=== PATIENT | female | born 1940 | race Caucasian/White ===

== ENCOUNTER → 2016-12-01 | Outpatient (REF) | payer MEDICARE, OTHER ==
[~2016-12-01] MED LIST: /PANT40TA; ALEN10TA2 OR; ALTA5CAP; ASPI325T; BABY81CH; FERR325T; FLON0.05; HYDR25TA6; IMDU60TA; IMDU60TA OR; KLOR10TA OR; LOPR100T; PLAV75TA2; PLAV75TA2 OR; PRED10TA2 OR; SIMV10TA2; SIMV40TA2 OR; VITA100T; ZOLO50TA
[2016-12-01 17:49] LABS: AMYLASE 50 U/L (25-115)
[2016-12-02 07:57] LABS: CONTROL LINE HPYORI INT CTR LINE PRESENT
== END ==
LOC: M LAB REF 16:35
PROVIDERS: ATTEND Nurse Practitioner Adult Health
DX: R10.84 Generalized abdominal pain (principal)

== ENCOUNTER → 2017-02-02 | Outpatient (REF) | payer MEDICARE, OTHER | LOC: M LAB REF 16:53 | PROVIDERS: ATTEND Surgery | DX: L57.0 Actinic keratosis (principal) ==

== ENCOUNTER → 2019-04-26 | Outpatient (CLI) | payer MEDICARE, OTHER ==
[~2019-04-26] MED LIST changes: -/PANT40TA; +PROT1TAB2
--- NOTE | 2019-04-26 15:50 | REP ---
Four views left foot: 04/26/2019. Indication: Left foot pain. Comparison: None. Findings: There is no acute fracture, subluxation or dislocation. No erosive lesions of the visualized bones are present. No significant soft tissue abnormalities are detected. Impression: No fracture or additional acute osseous injuries of the left foot. Electronically Signed by Merritt Young DO 04/26/2019 03:41 P
== END ==
LOC: M RAD 15:08
PROVIDERS: ATTEND Physician Assistant Medical
DX: M79.672 Pain in left foot (principal)

== ENCOUNTER 2020-11-19 18:42 | Emergency (ER) | payer MEDICARE, OTHER ==
[~2020-11-19] VITALS: Ht 160 cm; Wt 57.0 kg
[2020-11-19 20:23] LABS: BASO # 0.1 10^3/uL (0.0-0.2); BASO % 1.3 % (0.0-1.0); EOS # 1.1 10^3/uL (0.0-0.5); EOS % 13.8 % (0.0-3.0); HEMATOCRIT 40.7 % (36.0-47.0); HEMOGLOBIN 13.4 g/dl (12.0-15.5); LYMPH # 2.2 10^3/uL (1.5-5.0); LYMPH % 28.5 % (24.0-44.0); MEAN CORPUSCULAR HEMOGLOBIN 30.8 pg (27.0-33.0); MEAN CORPUSCULAR HGB CONC 32.9 g/dl (32.0-36.5); MEAN CORPUSCULAR VOLUME 93.6 fl (80.0-96.0); MONO # 0.8 10^3/uL (0.0-0.8); MONO % 10.6 % (2.0-8.0); NEUTROPHILS # 3.5 10^3/uL (1.5-8.5); NEUTROPHILS % 45.5 % (36.0-66.0); PLATELET COUNT, AUTOMATED 216 10^3/uL (150-450); RED BLOOD COUNT 4.35 10^6/uL (4.00-5.40); WHITE BLOOD COUNT 7.8 10^3/uL (4.0-10.0)
--- NOTE | 2020-11-19 21:23 | REPVR ---
PROCEDURE INFORMATION: Exam: XR Chest Exam date and time: 11/19/2020 8:25 PM Age: 80 years old Clinical indication: Cough and dyspnea; Additional info: Dyspnea/cough TECHNIQUE: Imaging protocol: XR of the chest. Views: 1 view. COMPARISON: MRI CHEST W/O FOLL WITH 04/23/2014 10:48 AM FINDINGS: Lungs: Pulmonary hyperinflation. No focal infiltrates. Increased lucency of lung. Pleural spaces: Unremarkable. No pleural effusion. No pneumothorax. Heart/Mediastinum: The heart is within normal limits considering lordotic projection. Bones/joints: Unremarkable. IMPRESSION: 1. Suggestion of some degree of COPD. 2. Otherwise negative chest. No acute process is identified. Electronically signed by: Romero Pinon On 11/19/2020 21:23:40 PM
[2020-11-19 21:33] LABS: ALBUMIN 3.3 GM/DL (3.2-5.2); ALT/SGPT 17 U/L (12-78); BILIRUBIN,DIRECT 0.1 MG/DL (0.0-0.2); BILIRUBIN,TOTAL 0.3 MG/DL (0.2-1.0); BLOOD UREA NITROGEN 23 MG/DL (7-18); CALCIUM LEVEL 9.3 MG/DL (8.8-10.2); CARBON DIOXIDE LEVEL 24 MEQ/L (21-32); CHLORIDE LEVEL 110 MEQ/L (98-107); CK-MB VALUE MASS 2.2 NG/ML (<3.6); CPK CREATINE PHOSPHOKINASE 48 U/L (26-192); CREATININE FOR GFR 0.54 MG/DL (0.55-1.30); GLOMERULAR FILTRATION RATE > 60.0 (>39); GLUCOSE, FASTING 92 MG/DL (70-100); MAGNESIUM LEVEL 2.2 MG/DL (1.8-2.4); MB/CK RELATIVE INDEX 4.58 (< OR =4); NT-PRO BNP 93 PG/ML (<450); POTASSIUM SERUM 4.3 MEQ/L (3.5-5.1); SODIUM LEVEL 142 MEQ/L (136-145); THYROXINE (T4) 6.7 UG/DL (4.5-12.0); TOTAL PROTEIN 6.2 GM/DL (6.4-8.2); TROPONIN I < 0.02 NG/ML (< 0.10)
[2020-11-19 23:15] VITALS: BP 136/76
--- NOTE | 2020-11-20 19:40 | ECGEPIP ---
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
== END 2020-11-20 00:05 | disposition home or self-care (01) ==
LOC: M ED 18:42
DX: R53.81 Other malaise (principal); R63.4 Abnormal weight loss; R06.02 Shortness of breath; I25.10 Atherosclerotic heart disease of native coronary artery without angina pectoris; I10 Essential (primary) hypertension; E03.9 Hypothyroidism, unspecified; F17.200 Nicotine dependence, unspecified, uncomplicated; Z88.0 Allergy status to penicillin; Z79.899 Other long term (current) drug therapy; Z79.82 Long term (current) use of aspirin

== ENCOUNTER → 2020-12-09 | Outpatient (CLI) | payer MEDICARE, OTHER ==
[~2020-12-09] MED LIST changes: +GASTROGRAFIN SOLUTION 30ML (Q9963) As Ordered ONE; +ISOVUE-370 76% 100ML VIAL As Ordered ONE
--- NOTE | 2020-12-10 08:07 | REP ---
INDICATION: WEIGHT LOSS AND EPIGASTRIC PAIN. COMPARISON: None TECHNIQUE: Axial contrast-enhanced images from the lung bases to the pubic symphysis using oral and 100 cc Isovue 370 intravenous contrast material. . This CT examination was performed using the following dose reduction techniques: Automated exposure control, adjustment of mA and/or kv according to the patient's size, and the use of iterative reconstruction technique. FINDINGS: Lung bases are clear. Visualized heart and pericardium normal. Liver, spleen, pancreas, bilateral adrenal glands and left kidney are normal. Incidental 2 mm nonobstructing right renal calculus noted. The enteric system including stomach, small, and large bowel appears essentially normal. No evidence for obstruction or acute inflammatory process. Normal terminal ileum and cecum are identified in the right lower quadrant. Few scattered sigmoid diverticula noted without acute diverticulitis. Pelvis demonstrates normal bladder and prior hysterectomy. No ascites. No free air. No intraperitoneal or retroperitoneal adenopathy. Atherosclerotic changes to the aorta and branch vessels noted without aneurysm or dissection. Musculoskeletal structures demonstrate age-related degenerative changes without acute osseous abnormality. IMPRESSION: No acute abdominopelvic pathology appreciated. As above. <Electronically signed by Pranay Proctor > 12/10/20 1229
== END ==
LOC: M RAD 16:15
PROVIDERS: ATTEND Physician Assistant Medical
DX: R63.4 Abnormal weight loss (principal); R10.13 Epigastric pain
CPT/HCPCS: 74178; Q9963; Q9967

== ENCOUNTER → 2020-12-25 | Outpatient (CLI) | payer MEDICARE, OTHER ==
[~2020-12-25] MED LIST changes: -GASTROGRAFIN SOLUTION 30ML (Q9963) As Ordered ONE; -ISOVUE-370 76% 100ML VIAL As Ordered ONE
--- NOTE | 2020-12-25 08:32 | REP ---
INDICATION: NICOTINE DEPENDENCE. COMPARISON: None. TECHNIQUE: Axial noncontrast images from the thoracic inlet to the upper abdomen using low-dose lung screening technique (LDCT). As per the protocol only lung window images were sent to the read station for interpretation. FINDINGS: There is mild biapical pleuroparenchymal scarring. There is a thick wall cystic airspace in the anterior segment of the left upper lobe. This measures 1 cm. Along its inferior margin there is a 5 mm sized nodule. In the apicoposterior segment of the left upper lobe there is 4 mm size nodule. In the superior segment of the left lower lobe there is a 3 mm size nodule. In the lateral basal segment of the right lower lobe there is a 4 mm size nodule. There are numerous scattered 2 and 3 mm sized nodules bilaterally. There is cylindrical bronchiectasis. In some of the dilatated bronchi there is obstructing or near obstructing debris in the right lower lobe. In the left mainstem bronchus there is a small amount of soft tissue density along the anterior wall. There is cylindrical bronchiectasis throughout. There is an incidental calcified granuloma in the right lower lobe. Grossly the mediastinum and pulmonary murray are within normal limits. Grossly the imaged upper abdomen and imaged osseous structures are within normal limits. IMPRESSION: There are multiple lung field abnormalities as described above. According to the revised Fleischner society criteria the largest nodule which is seen in the left upper lobe represents a category 4 lesion and for which a 3 month follow-up is recommended, however, due to the multiple lung field abnormalities I will categorize the examination as a 4 S and recommend pulmonary consultation for further evaluation if clinically relevant. <Electronically signed by Cruzito Gonzalez > 12/25/20 7623
== END ==
LOC: M RAD 07:59
PROVIDERS: ATTEND Physician Assistant Medical
DX: F17.210 Nicotine dependence, cigarettes, uncomplicated (principal)

== ENCOUNTER → 2021-01-06 | Outpatient (CLI) | payer MEDICARE, OTHER | LOC: M WHC 07:52 | PROVIDERS: ATTEND Physician Assistant Medical | DX: Z12.31 Encounter for screening mammogram for malignant neoplasm of breast (principal) ==

== ENCOUNTER → 2021-01-28 | Outpatient (CLI) | payer MEDICARE, OTHER ==
--- NOTE | 2021-01-28 14:46 | PFTRPT ---
Site: [facility], [address] [place] [address], [id number] ID: [id number] Name: PARISA KEYS Visit Date: 01/28/2021 Second ID: [id number] Referring Doctor: Magen Estevez MD Reviewing Doctor: Magen Estevez MD On Call: Alpesh WALTER, CHUCKIE Age: 80 : 1940 Sex: Female Race: Height: 63.00 Inches Weight: 124.00 Lbs BSA: 1.58 Order IDs: [id number] Requested Test(s): <RESP-PFT.PFT B/A> Diagnosis: R91.8 test appear to be valid, although the ATS standard for "end of test" was not met. Pt was given four puffs of albuterol for post bronchodilator. Review Status: Not Reviewed Pre-Bronch Post-Bronch Pred Actual %Pred Actual %Chng SPIROMETRY FVC (L) 2.50 2.91 116 2.95 1 FEV1 (L) 1.86 1.77 95 2.03 14 FEV1/FVC (%) 74 61 82 69 13 FEF 25% (L/sec) 4.40 2.75 62 4.10 49 FEF 50% (L/sec) 3.06 0.99 32 1.88 90 FEF 75% (L/sec) 0.76 0.32 41 0.29 -9 FEF 25-75% (L/sec) 1.37 0.79 57 1.20 51 FEF Max (L/sec) 4.67 4.62 98 5.02 8 FIVC (L) 2.62 2.75 4 FIF 50% (L/sec) 2.88 3.10 107 3.43 10 FIF Max (L/sec) 3.11 3.43 10 MVV (L/min) 78 70 89 Expiratory Time (sec) 7.73 8.85 14 Back Extrap Vol (L) 0.06 0.08 31 Time To FEFmax (sec) 0.078 0.081 3 LUNG VOLUMES SVC (L) 2.57 2.88 112 IC (L) 2.07 1.74 83 ERV (L) 0.50 1.14 228 TGV (L) 2.83 4.12 145 RV (Pleth) (L) 2.33 2.98 127 TLC (Pleth) (L) 4.90 5.86 119 RV/TLC (Pleth) (%) 47 51 108 DIFFUSION DLCOunc (ml/min/mmHg) 19.03 15.53 81 DLCOcor (ml/min/mmHg) 19.03 15.99 84 DL/VA (ml/min/mmHg/L) 3.88 3.60 92 VA (L) 4.90 4.44 90 BHT (sec) 9.98 IVC (L) 2.51 TLC (SB) (L) 4.59 AIRWAYS RESISTANCE Raw (cmH2O/L/s) 1.86 1.02 54 Gaw (L/s/cmH2O) 1.03 0.99 96 sRaw (cmH2O*s) 4.76 4.29 90 sGaw (1/cmH2O*s) 0.20 0.23 117 BLOOD GASES Hgb (gm/dL) 12.5
== END ==
LOC: M CARPUL 13:35
PROVIDERS: ATTEND Internal Medicine Pulmonary Disease
DX: R91.8 Other nonspecific abnormal finding of lung field (principal)

== ENCOUNTER → 2022-03-17 | Outpatient (REF) | payer MEDICARE, OTHER | LOC: M LAB REF 12:02 | PROVIDERS: ATTEND Physician Assistant Medical | DX: E03.9 Hypothyroidism, unspecified (principal) ==

== ENCOUNTER → 2022-10-21 | Outpatient (REF) | payer MEDICARE, OTHER | LOC: M LAB REF 12:19 | PROVIDERS: ATTEND Physician Assistant Medical | DX: E03.9 Hypothyroidism, unspecified (principal) ==

== ENCOUNTER → 2022-12-11 | Outpatient (CLI) | payer MEDICARE, OTHER | LOC: M RAD 06:58 | PROVIDERS: ATTEND Internal Medicine Pulmonary Disease | DX: R91.8 Other nonspecific abnormal finding of lung field (principal) ==

== ENCOUNTER → 2023-03-08 | Outpatient (CLI) | payer MEDICARE, OTHER | LOC: M WUC 11:01 | PROVIDERS: ATTEND Physician Assistant Medical | DX: M25.552 Pain in left hip (principal) ==

== ENCOUNTER → 2023-11-18 | Outpatient (CLI) | payer MEDICARE, OTHER ==
[2023-11-18 12:58] LABS: BLOOD UREA NITROGEN 23 MG/DL (9-23); CREATININE FOR GFR 0.73 MG/DL (0.55-1.30); GLOMERULAR FILTRATION RATE > 60.0 (>32)
== END ==
LOC: M LAB 11:32
PROVIDERS: ATTEND Psychiatry & Neurology Neurology
DX: I10 Essential (primary) hypertension (principal)

== ENCOUNTER → 2023-12-23 | Outpatient (CLI) | payer MEDICARE, OTHER ==
[~2023-12-23] MED LIST changes: +BUDE3CAP; +CLON-412; +CLOP75TA2; +ISOS20TA4; +LEVO88CA; +METO1TAB33; +RAMI10CA64; +SIMVPOW2; +ZOLO100T
== END ==
LOC: M EKG 07:56
PROVIDERS: ATTEND Internal Medicine Cardiovascular Disease
DX: I63.81 Other cerebral infarction due to occlusion or stenosis of small artery (principal); R94.31 Abnormal electrocardiogram [ECG] [EKG]; R00.1 Bradycardia, unspecified

== ENCOUNTER 2023-12-30 13:51 | Emergency (ER) | payer MEDICARE, OTHER ==
[~2023-12-30] VITALS: Ht 157.5 cm; Wt 48.6 kg
[~2023-12-30 13:51] MED LIST changes: -BUDE3CAP; -CLON-412; -CLOP75TA2; -ISOS20TA4; -LEVO88CA; -METO1TAB33; -RAMI10CA64; -SIMVPOW2; -ZOLO100T
[2023-12-30] MEDS ORDERED: BUDE3CAP (14:06)
[2023-12-30] MEDS ORDERED: SIMVPOW2 (14:06)
[2023-12-30 14:46] LABS: BASO # 0.1 10^3/uL (0.0-0.2); BASO % 0.8 % (0.0-1.0); EOS # 0.6 10^3/uL (0.0-0.5); EOS % 8.9 % (0.0-3.0); HEMATOCRIT 31.8 % (36.0-47.0); HEMOGLOBIN 9.7 g/dl (12.0-15.5); LYMPH # 2.1 10^3/uL (1.5-5.0); LYMPH % 29.6 % (24.0-44.0); MEAN CORPUSCULAR HEMOGLOBIN 24.3 pg (27.0-33.0); MEAN CORPUSCULAR HGB CONC 30.5 g/dl (32.0-36.5); MEAN CORPUSCULAR VOLUME 79.7 fl (80.0-96.0); MONO # 0.6 10^3/uL (0.0-0.8); MONO % 8.9 % (2.0-8.0); NEUTROPHILS # 3.6 10^3/uL (1.5-8.5); NEUTROPHILS % 51.4 % (36.0-66.0); PLATELET COUNT, AUTOMATED 299 10^3/uL (150-450); RED BLOOD COUNT 3.99 10^6/uL (4.00-5.40); WHITE BLOOD COUNT 7.1 10^3/uL (4.0-10.0)
[2023-12-30 15:12] LABS: BLOOD UREA NITROGEN 20 MG/DL (9-23); CALCIUM LEVEL 9.3 MG/DL (8.3-10.6); CARBON DIOXIDE LEVEL 25 MMOL/L (20-31); CHLORIDE LEVEL 112 MMOL/L (98-107); CPK CREATINE PHOSPHOKINASE 40 U/L (34-145); CREATININE FOR GFR 0.59 MG/DL (0.55-1.30); GLOMERULAR FILTRATION RATE > 60.0 (>32); GLUCOSE, FASTING 80 MG/DL (74-106); POTASSIUM SERUM 4.2 MMOL/L (3.5-5.1); SODIUM LEVEL 142 MMOL/L (136-145)
[2023-12-30] MEDS ORDERED: ONDANSETRON 4MG 2ML VIAL IV ONE (15:30)
[2023-12-30] MEDS ORDERED: ISOVUE-370 76% 100ML VIAL As Ordered ONE (15:42)
[2023-12-30 16:04] LABS: CK-MB VALUE MASS 1.8 NG/ML (<3.6)
[2023-12-30 16:08] LABS: MB/CK RELATIVE INDEX 4.86 (< OR =4)
[2023-12-30] MEDS ORDERED: LEVO88CA (18:09)
[2023-12-30] MEDS ORDERED: CLON-412 (18:09)
[2023-12-30] MEDS ORDERED: ISOS20TA4 (18:09)
[2023-12-30] MEDS ORDERED: METO1TAB33 (18:09)
[2023-12-30] MEDS ORDERED: RAMI10CA64 (18:09)
[2023-12-30] MEDS ORDERED: ZOLO100T (18:09)
[2023-12-30] MEDS ORDERED: CLOP75TA2 (18:09)
[2023-12-30 19:01] VITALS: BP 184/85; TEMP 98.8; O2SAT 95
== END 2023-12-30 19:03 | disposition home or self-care (01) ==
LOC: M ED 13:51
DX: R07.9 Chest pain, unspecified (principal); J44.1 Chronic obstructive pulmonary disease with (acute) exacerbation; J43.9 Emphysema, unspecified; R00.1 Bradycardia, unspecified; I10 Essential (primary) hypertension; E78.5 Hyperlipidemia, unspecified; Z86.79 Personal history of other diseases of the circulatory system; F17.200 Nicotine dependence, unspecified, uncomplicated; Z90.49 Acquired absence of other specified parts of digestive tract; Z88.0 Allergy status to penicillin; Z79.82 Long term (current) use of aspirin; Z79.899 Other long term (current) drug therapy
CPT/HCPCS: 71045; 71275; 80047; 80048; 82550; 82553; 84484; 85025; 85730; 93005; 93041; 94760; 96374; 99285; Q9967

== ENCOUNTER 2024-02-22 11:32 | Day surgery (SDC) | payer MEDICARE, OTHER ==
[~2024-02-22] VITALS: Ht 157.5 cm; Wt 50.2 kg
[~2024-02-22 11:32] MED LIST changes: +ASPI-163 PO; +BUDE3CAP PO; +CLON-412 PO; +CLOP75TA2 PO; +ISOS20TA4 PO; +LEVO88CA PO; +METO1TAB33 PO; +RAMI10CA64 PO; +SIMV80TA13 PO; +SIMVPOW2; +ZOLO100T PO
[2024-02-22] MEDS ORDERED: LR 1,000 ML IV SCH (12:00)
[2024-02-22] MEDS ORDERED: LIDOCAINE 2% 100MG/5ML SDV (FOR ANES.) As Ordered ONE (12:40)
[2024-02-22] MEDS ORDERED: propofoL 200 MG/20 ML VIAL As Ordered ONE (12:40)
[2024-02-22] MEDS: ceFAZolin SOD 2 GM in IV 1 EA IV ONE (13:23)
[2024-02-22] MEDS: LIDOCAINE 1% SDV 30ML VIAL As Ordered ONE (13:44)
[2024-02-22 14:17] VITALS: BP 171/77; TEMP 97.8; O2SAT 100
== END 2024-02-22 14:40 | disposition home or self-care (01) ==
LOC: M SDC 11:32
PROVIDERS: ATTEND Internal Medicine Cardiovascular Disease
DX: I63.9 Cerebral infarction, unspecified (principal); I48.91 Unspecified atrial fibrillation; Z79.02 Long term (current) use of antithrombotics/antiplatelets; I10 Essential (primary) hypertension; J44.9 Chronic obstructive pulmonary disease, unspecified; I25.10 Atherosclerotic heart disease of native coronary artery without angina pectoris; E03.9 Hypothyroidism, unspecified; F32.A Depression, unspecified; Z88.0 Allergy status to penicillin; Z79.899 Other long term (current) drug therapy
CPT/HCPCS: 33285; C1764; J0690

== ENCOUNTER 2024-03-05 12:25 | Emergency (ER) | payer MEDICARE, OTHER ==
[~2024-03-05] VITALS: Ht 157.5 cm; Wt 48.4 kg
[2024-03-05 19:02] VITALS: BP 178/82; TEMP 97.1; O2SAT 95
== END 2024-03-05 19:22 | disposition home or self-care (01) ==
LOC: M ED 12:25
DX: F43.0 Acute stress reaction (principal); K08.89 Other specified disorders of teeth and supporting structures; I25.2 Old myocardial infarction; I10 Essential (primary) hypertension; E78.5 Hyperlipidemia, unspecified; J45.909 Unspecified asthma, uncomplicated; J44.9 Chronic obstructive pulmonary disease, unspecified; E03.9 Hypothyroidism, unspecified; Z87.891 Personal history of nicotine dependence; Z88.0 Allergy status to penicillin; Z79.82 Long term (current) use of aspirin; Z79.899 Other long term (current) drug therapy

== ENCOUNTER 2024-03-13 11:58 | Inpatient (IN) | payer MEDICARE, OTHER ==
[2024-03-13] VITALS (8 sets, daily range): BP systolic 149–201; BP diastolic 64–83; TEMP 97.3–99; O2SAT 95–99
[~2024-03-13] VITALS: Ht 157.5 cm; Wt 49.2 kg
[2024-03-13] MEDS ORDERED: ISOVUE-370 76% 100ML VIAL As Ordered ONE (12:51)
[2024-03-13 13:06] LABS: BASO % 0.6 % (0.0-1.0); EOS # 0.5 10^3/uL (0.0-0.5); EOS % 7.7 % (0.0-3.0); LYMPH # 1.5 10^3/uL (1.5-5.0); LYMPH % 22.9 % (24.0-44.0); MEAN CORPUSCULAR HEMOGLOBIN 21.2 pg (27.0-33.0); MEAN CORPUSCULAR HGB CONC 28.5 g/dl (32.0-36.5); MEAN CORPUSCULAR VOLUME 74.2 fl (80.0-96.0); MONO # 0.5 10^3/uL (0.0-0.8); MONO % 7.9 % (2.0-8.0); NEUTROPHILS # 3.9 10^3/uL (1.5-8.5); NEUTROPHILS % 60.3 % (36.0-66.0); PLATELET COUNT, AUTOMATED 340 10^3/uL (150-450); WHITE BLOOD COUNT 6.5 10^3/uL (4.0-10.0)
[2024-03-13 13:17] LABS: INR 1.08; PARTIAL THROMBOPLASTIN TIME 30.1 SECONDS (24.8-34.2); PROTHROMBIN TIME 13.7 SECONDS (12.5-14.5)
[2024-03-13 13:19] LABS: HEMATOCRIT 19.3 % (36.0-47.0)
[2024-03-13 13:20] LABS: CK-MB VALUE MASS 1.1 NG/ML (<3.6)
[2024-03-13 13:22] LABS: BLOOD UREA NITROGEN 22 MG/DL (9-23); CARBON DIOXIDE LEVEL 28 MMOL/L (20-31); CHLORIDE LEVEL 111 MMOL/L (98-107); CREATININE FOR GFR 0.63 MG/DL (0.55-1.30); GLOMERULAR FILTRATION RATE > 60.0 (>32); GLUCOSE, FASTING 75 MG/DL (74-106); HEMOGLOBIN 5.5 g/dl (12.0-15.5); POTASSIUM SERUM 4.3 MMOL/L (3.5-5.1); SODIUM LEVEL 143 MMOL/L (136-145)
[2024-03-13 13:27] LABS: CPK CREATINE PHOSPHOKINASE 41 U/L (34-145); MB/CK RELATIVE INDEX 2.68 (< OR =4)
[2024-03-13] MEDS ORDERED: BUSP5TA PO (13:38)
[2024-03-13] MEDS ORDERED: SIMV-254 PO (13:38)
[2024-03-13] MEDS ORDERED: HOME MED LIST COMPLETE! XX SCH (13:40)
[2024-03-13] MEDS: PANTOPRAZOLE 40MG VIAL IV ONE ×2 (14:02→21:08)
[2024-03-13] MEDS ORDERED: busPIRone 5 MG TAB PO PRN (15:10)
[2024-03-13] MEDS ORDERED: SERTRALINE 100 MG TAB PO ONE (15:25)
[2024-03-13] MEDS ORDERED: ramipriL 5 MG CAP PO ONE (15:25)
[2024-03-13] MEDS ORDERED: LEVOTHYROXINE 88MCG TABLET (0.088 MG) PO ONE (15:25)
[2024-03-13] MEDS ORDERED: PANTOPRAZOLE 40MG VIAL IV ONE (15:25)
[2024-03-13] MEDS: SERTRALINE 100 MG TAB PO SCH (15:45)
[2024-03-13] MEDS: METOPROLOL SUCC (TopROL XL) 100MG *XL* TAB PO SCH (15:45)
[2024-03-13 16:21] LABS: IRON (FE) 6 UG/DL (50-170)
[2024-03-13 16:22] LABS: FERRITIN 5.8 NG/ML (7.3-270.7); FOLATE 18.35 NG/ML (>5.4); PERCENT SATURATION 1.5 % (13.2-45.0); TOTAL IRON BINDING CAPACITY 413 UG/DL (250-425)
[2024-03-13 16:25] LABS: VITAMIN B12 LEVEL > 2000 PG/ML (211-911)
[2024-03-13] MEDS: METOPROLOL TART 25 MG TABLET PO ONE (17:31)
[2024-03-13] MEDS: BUDESONIDE EC 3MG CAP (ENTOCORT EC) PO SCH (21:08)
[2024-03-13] MEDS: ramipriL 5 MG CAP PO SCH (21:08)
[2024-03-13] MEDS: SIMVASTATIN 40 MG TAB PO SCH (21:08)
[2024-03-13] MEDS: ISOSORBIDE DIN. (ISORDIL) 20 MG TAB PO SCH (21:08)
[2024-03-13 21:40] LABS: ALBUMIN 3.2 G/DL (3.2-5.2); ALKALINE PHOSPHATASE 78 U/L (46-116); ALT/SGPT 10 U/L (7.0-40); AST/SGOT 18 U/L (<34); BILIRUBIN,TOTAL 0.8 MG/DL (0.3-1.2); BLOOD UREA NITROGEN 18 MG/DL (9-23); CALCIUM LEVEL 8.7 MG/DL (8.3-10.6); CARBON DIOXIDE LEVEL 26 MMOL/L (20-31); CHLORIDE LEVEL 111 MMOL/L (98-107); GLOMERULAR FILTRATION RATE > 60.0 (>32); GLUCOSE, FASTING 72 MG/DL (74-106); POTASSIUM SERUM 4.1 MMOL/L (3.5-5.1); SODIUM LEVEL 141 MMOL/L (136-145); TOTAL PROTEIN 5.8 G/DL (5.7-8.2)
[2024-03-14] VITALS (7 sets, daily range): BP systolic 140–178; BP diastolic 56–95; TEMP 97.2–98.3; O2SAT 94–96
[2024-03-14 02:25] LABS: BASO # 0.1 10^3/uL (0.0-0.2); EOS # 0.5 10^3/uL (0.0-0.5); EOS % 7.9 % (0.0-3.0); HEMATOCRIT 26.1 % (36.0-47.0); LYMPH # 1.3 10^3/uL (1.5-5.0); LYMPH % 18.2 % (24.0-44.0); MEAN CORPUSCULAR HGB CONC 30.7 g/dl (32.0-36.5); MEAN CORPUSCULAR VOLUME 78.4 fl (80.0-96.0); MONO # 0.5 10^3/uL (0.0-0.8); MONO % 7.7 % (2.0-8.0); NEUTROPHILS # 4.4 10^3/uL (1.5-8.5); NEUTROPHILS % 64.6 % (36.0-66.0); PLATELET COUNT, AUTOMATED 313 10^3/uL (150-450); RED BLOOD COUNT 3.33 10^6/uL (4.00-5.40); WHITE BLOOD COUNT 6.9 10^3/uL (4.0-10.0)
[2024-03-14] MEDS: SUCRALFATE SUSP 1GM/10ML UD PO SCH (06:00)
[2024-03-14] MEDS: LEVOTHYROXINE 88MCG TABLET (0.088 MG) PO SCH (06:26)
[2024-03-14] MEDS: ASPIRIN 81MG CHEW TABLET PEG SCH (08:51)
[2024-03-14] MEDS: PANTOPRAZOLE 40MG VIAL IV SCH (08:52)
[2024-03-14] MEDS ORDERED: SERTRALINE 100 MG TAB PO SCH (09:00)
[2024-03-14 11:28] LABS: HEMOGLOBIN A1c 5.4 % (4.0-6.0)
[2024-03-14 11:34] LABS: ALKALINE PHOSPHATASE 73 U/L (46-116); ALT/SGPT < 9 U/L (7.0-40); AST/SGOT 16 U/L (<34); BILIRUBIN,TOTAL 0.7 MG/DL (0.3-1.2); BLOOD UREA NITROGEN 14 MG/DL (9-23); CALCIUM LEVEL 8.3 MG/DL (8.3-10.6); CARBON DIOXIDE LEVEL 26 MMOL/L (20-31); CHLORIDE LEVEL 110 MMOL/L (98-107); CHOLESTEROL LEVEL 100 MG/DL (<200); CHOLESTEROL RISK RATIO 2.84 (<5); CREATININE FOR GFR 0.58 MG/DL (0.55-1.30); GLOMERULAR FILTRATION RATE > 60.0 (>32); GLUCOSE, FASTING 115 MG/DL (74-106); HDL CHOLESTEROL 35.1 MG/DL (>40); LDL CHOLESTEROL 45.9 MG/DL (<100); NON-HDL-C 64.9 MG/DL; POTASSIUM SERUM 4.2 MMOL/L (3.5-5.1); SODIUM LEVEL 139 MMOL/L (136-145); TOTAL PROTEIN 5.4 G/DL (5.7-8.2); TRIGLYCERIDES LEVEL 95 MG/DL (<150)
[2024-03-14] MEDS: PREVNAR-20 VACCINE 0.5ML SYRINGE IM.IMMUN ONE (12:10)
[2024-03-14] MEDS: FERRIC CARBOXYMALTOSE INJ 750 MG, VIAL MATE ADAPTER 1 EACH in NS 250 ML IV ONE (15:01)
[2024-03-15 00:35] VITALS: BP 160/58; TEMP 97.7; O2SAT 95
[2024-03-15 04:41] VITALS: BP 164/62; TEMP 98.5; O2SAT 95
[2024-03-15 07:20] VITALS: BP 152/86; TEMP 97.5; O2SAT 96
[2024-03-15 08:31] LABS: BASO % 0.7 % (0.0-1.0); EOS # 0.4 10^3/uL (0.0-0.5); EOS % 6.7 % (0.0-3.0); HEMATOCRIT 26.9 % (36.0-47.0); HEMOGLOBIN 8.1 g/dl (12.0-15.5); LYMPH # 0.9 10^3/uL (1.5-5.0); LYMPH % 16.3 % (24.0-44.0); MEAN CORPUSCULAR HEMOGLOBIN 23.6 pg (27.0-33.0); MEAN CORPUSCULAR HGB CONC 30.1 g/dl (32.0-36.5); MEAN CORPUSCULAR VOLUME 78.4 fl (80.0-96.0); MONO # 0.5 10^3/uL (0.0-0.8); MONO % 8.8 % (2.0-8.0); NEUTROPHILS # 3.9 10^3/uL (1.5-8.5); PLATELET COUNT, AUTOMATED 291 10^3/uL (150-450); RED BLOOD COUNT 3.43 10^6/uL (4.00-5.40); WHITE BLOOD COUNT 5.8 10^3/uL (4.0-10.0)
[2024-03-15 08:57] LABS: BLOOD UREA NITROGEN 11 MG/DL (9-23); CALCIUM LEVEL 8.9 MG/DL (8.3-10.6); CARBON DIOXIDE LEVEL 28 MMOL/L (20-31); CHLORIDE LEVEL 111 MMOL/L (98-107); GLOMERULAR FILTRATION RATE > 60.0 (>32); GLUCOSE, FASTING 87 MG/DL (74-106); SODIUM LEVEL 142 MMOL/L (136-145)
[2024-03-15 16:00] VITALS: BP 138/82; TEMP 97.5; O2SAT 97
[2024-03-15] MEDS: MOM 30ML SUSPENSION UDC PO ONE (18:26)
[2024-03-15 19:53] VITALS: BP 158/58; TEMP 97.7; O2SAT 97
[2024-03-15 21:00] VITALS: BP 137/58; TEMP 98.1; O2SAT 93
[2024-03-16] VITALS (12 sets, daily range): BP systolic 134–162; BP diastolic 54–71; TEMP 97–98.4; O2SAT 95–98
[2024-03-16 06:30] LABS: BASO # 0.1 10^3/uL (0.0-0.2); BASO % 0.9 % (0.0-1.0); EOS # 0.4 10^3/uL (0.0-0.5); EOS % 7.3 % (0.0-3.0); HEMOGLOBIN 7.5 g/dl (12.0-15.5); LYMPH # 1.4 10^3/uL (1.5-5.0); LYMPH % 23.2 % (24.0-44.0); MEAN CORPUSCULAR HEMOGLOBIN 23.7 pg (27.0-33.0); MEAN CORPUSCULAR VOLUME 79.1 fl (80.0-96.0); MONO # 0.6 10^3/uL (0.0-0.8); MONO % 10.6 % (2.0-8.0); NEUTROPHILS # 3.4 10^3/uL (1.5-8.5); NEUTROPHILS % 57.3 % (36.0-66.0); PLATELET COUNT, AUTOMATED 299 10^3/uL (150-450); RED BLOOD COUNT 3.16 10^6/uL (4.00-5.40); WHITE BLOOD COUNT 5.9 10^3/uL (4.0-10.0)
[2024-03-16] MEDS: MOM 30ML SUSPENSION UDC PO ONE (09:00)
[2024-03-16 16:12] LABS: HEMOGLOBIN 6.5 g/dl (12.0-15.5)
[2024-03-16] MEDS: POLYETHYLENE GLYCOL (MIRALAX) 238GM BOTTLE PO ONE (17:43)
[2024-03-17] VITALS (10 sets, daily range): BP systolic 118–174; BP diastolic 50–94; TEMP 97.2–98.8; O2SAT 93–98
[2024-03-17] MEDS: POLYETHYLENE GLYCOL (MIRALAX) 238GM BOTTLE PO ONE (06:26)
[2024-03-17 06:29] LABS: BASO # 0.1 10^3/uL (0.0-0.2); BASO % 0.9 % (0.0-1.0); EOS # 0.4 10^3/uL (0.0-0.5); EOS % 5.5 % (0.0-3.0); LYMPH # 1.3 10^3/uL (1.5-5.0); LYMPH % 16.2 % (24.0-44.0); MEAN CORPUSCULAR HGB CONC 31.5 g/dl (32.0-36.5); MEAN CORPUSCULAR VOLUME 82.6 fl (80.0-96.0); MONO # 0.8 10^3/uL (0.0-0.8); MONO % 9.8 % (2.0-8.0); NEUTROPHILS # 5.3 10^3/uL (1.5-8.5); NEUTROPHILS % 66.7 % (36.0-66.0); PLATELET COUNT, AUTOMATED 267 10^3/uL (150-450); RED BLOOD COUNT 3.84 10^6/uL (4.00-5.40); WHITE BLOOD COUNT 7.9 10^3/uL (4.0-10.0)
[2024-03-17 06:35] LABS: HEMATOCRIT 31.7 % (36.0-47.0)
[2024-03-17] MEDS: ACETAMINOPHEN *IV* 500 MG in IV 1 EA IV ONE (12:20)
[2024-03-17] MEDS ORDERED: propofoL 200 MG/20 ML VIAL As Ordered ONE (14:34)
[2024-03-17] MEDS ORDERED: LIDOCAINE 2% INJ 100 MG/5 ML SYRINGE As Ordered ONE (14:34)
[2024-03-17] MEDS ORDERED: LIDOCAINE 2% 100MG/5ML SDV (FOR ANES.) As Ordered ONE (14:40)
[2024-03-17] MEDS ORDERED: fentaNYL 100 MCG/2 ML INJECTION As Ordered ONE (16:32)
[2024-03-17] MEDS ORDERED: ONDANSETRON 4MG 2ML VIAL IV PRN (18:00)
[2024-03-17] MEDS ORDERED: fentaNYL 100 MCG/2 ML INJECTION IV PRN (18:00)
[2024-03-17] MEDS: NORCO, ANEXSIA 5/325MG TABLET (HYDROcodone/ACETAMINOPHEN) PO ONE (20:57)
[2024-03-18] VITALS: BP 110/50; TEMP 97.9; O2SAT 97
[2024-03-18 04:00] VITALS: BP 142/58; TEMP 97.9; O2SAT 96
[2024-03-18 07:02] LABS: BASO # 0.1 10^3/uL (0.0-0.2); BASO % 0.7 % (0.0-1.0); EOS # 0.4 10^3/uL (0.0-0.5); HEMATOCRIT 30.6 % (36.0-47.0); HEMOGLOBIN 9.5 g/dl (12.0-15.5); LYMPH # 1.4 10^3/uL (1.5-5.0); MEAN CORPUSCULAR HEMOGLOBIN 26.3 pg (27.0-33.0); MEAN CORPUSCULAR VOLUME 84.8 fl (80.0-96.0); MONO # 0.7 10^3/uL (0.0-0.8); MONO % 9.4 % (2.0-8.0); NEUTROPHILS # 4.6 10^3/uL (1.5-8.5); NEUTROPHILS % 63.9 % (36.0-66.0); PLATELET COUNT, AUTOMATED 240 10^3/uL (150-450); RED BLOOD COUNT 3.61 10^6/uL (4.00-5.40); WHITE BLOOD COUNT 7.2 10^3/uL (4.0-10.0)
[2024-03-18 09:39] VITALS: BP 119/52; TEMP 97.7; O2SAT 97
[2024-03-18 12:00] VITALS: BP 136/62; TEMP 97; O2SAT 96
[2024-03-18 16:00] VITALS: BP 135/60; TEMP 97.7; O2SAT 97
[2024-03-18 20:59] VITALS: BP 151/60; TEMP 98.1; O2SAT 96
[2024-03-19] VITALS (7 sets, daily range): BP systolic 136–167; BP diastolic 59–70; TEMP 97.7–98.1; O2SAT 95–100
[2024-03-19 06:56] LABS: HEMATOCRIT 30.3 % (36.0-47.0); HEMOGLOBIN 9.4 g/dl (12.0-15.5); MEAN CORPUSCULAR HEMOGLOBIN 26.6 pg (27.0-33.0); MEAN CORPUSCULAR VOLUME 85.6 fl (80.0-96.0); PLATELET COUNT, AUTOMATED 205 10^3/uL (150-450); RED BLOOD COUNT 3.54 10^6/uL (4.00-5.40); WHITE BLOOD COUNT 5.5 10^3/uL (4.0-10.0)
[2024-03-19 07:23] LABS: ALBUMIN 2.9 G/DL (3.2-5.2); ALKALINE PHOSPHATASE 84 U/L (46-116); ALT/SGPT < 9 U/L (7.0-40); AST/SGOT 17 U/L (<34); BILIRUBIN,TOTAL 0.6 MG/DL (0.3-1.2); BLOOD UREA NITROGEN 10 MG/DL (9-23); CALCIUM LEVEL 8.7 MG/DL (8.3-10.6); CARBON DIOXIDE LEVEL 26 MMOL/L (20-31); CHLORIDE LEVEL 112 MMOL/L (98-107); CREATININE FOR GFR 0.67 MG/DL (0.55-1.30); GLOMERULAR FILTRATION RATE > 60.0 (>32); GLUCOSE, FASTING 78 MG/DL (74-106); POTASSIUM SERUM 3.9 MMOL/L (3.5-5.1); SODIUM LEVEL 140 MMOL/L (136-145); TOTAL PROTEIN 5.3 G/DL (5.7-8.2)
[2024-03-20 04:48] VITALS: BP 166/71; TEMP 97.9; O2SAT 98
[2024-03-20 07:10] LABS: HEMATOCRIT 29.8 % (36.0-47.0); MEAN CORPUSCULAR HEMOGLOBIN 25.9 pg (27.0-33.0); MEAN CORPUSCULAR HGB CONC 30.2 g/dl (32.0-36.5); MEAN CORPUSCULAR VOLUME 85.6 fl (80.0-96.0); PLATELET COUNT, AUTOMATED 196 10^3/uL (150-450); RED BLOOD COUNT 3.48 10^6/uL (4.00-5.40)
[2024-03-20 07:57] LABS: ALBUMIN 2.9 G/DL (3.2-5.2); ALKALINE PHOSPHATASE 82 U/L (46-116); ALT/SGPT < 9 U/L (7.0-40); AST/SGOT 21 U/L (<34); BILIRUBIN,TOTAL 0.6 MG/DL (0.3-1.2); BLOOD UREA NITROGEN 7 MG/DL (9-23); CALCIUM LEVEL 8.5 MG/DL (8.3-10.6); CARBON DIOXIDE LEVEL 27 MMOL/L (20-31); CHLORIDE LEVEL 111 MMOL/L (98-107); CREATININE FOR GFR 0.57 MG/DL (0.55-1.30); GLOMERULAR FILTRATION RATE > 60.0 (>32); GLUCOSE, FASTING 83 MG/DL (74-106); POTASSIUM SERUM 3.9 MMOL/L (3.5-5.1); SODIUM LEVEL 144 MMOL/L (136-145); TOTAL PROTEIN 5.2 G/DL (5.7-8.2)
[2024-03-20 08:00] VITALS: BP 162/82; TEMP 98.1; O2SAT 97
[2024-03-20] MEDS: PANTOPRAZOLE 40MG TAB (PROTONIX) PO SCH (08:17)
[2024-03-20 12:00] VITALS: BP 152/96; TEMP 97.7; O2SAT 96
[2024-03-20 16:00] VITALS: BP 151/60; TEMP 98.4; O2SAT 97
[2024-03-20 20:01] VITALS: BP 155/57; TEMP 98.1; O2SAT 96
[2024-03-21] VITALS: BP 150/60; TEMP 97.7; O2SAT 95
[2024-03-21 04:01] VITALS: BP 156/67; TEMP 97.9; O2SAT 96
[2024-03-21 07:07] LABS: HEMATOCRIT 27.7 % (36.0-47.0); HEMOGLOBIN 8.6 g/dl (12.0-15.5); MEAN CORPUSCULAR HEMOGLOBIN 26.6 pg (27.0-33.0); MEAN CORPUSCULAR VOLUME 85.8 fl (80.0-96.0); PLATELET COUNT, AUTOMATED 180 10^3/uL (150-450); RED BLOOD COUNT 3.23 10^6/uL (4.00-5.40); WHITE BLOOD COUNT 4.5 10^3/uL (4.0-10.0)
[2024-03-21 07:54] LABS: ALBUMIN 2.7 G/DL (3.2-5.2); ALKALINE PHOSPHATASE 88 U/L (46-116); ALT/SGPT 9 U/L (7.0-40); AST/SGOT 18 U/L (<34); BILIRUBIN,TOTAL 0.4 MG/DL (0.3-1.2); BLOOD UREA NITROGEN 13 MG/DL (9-23); CALCIUM LEVEL 8.4 MG/DL (8.3-10.6); CARBON DIOXIDE LEVEL 26 MMOL/L (20-31); CHLORIDE LEVEL 111 MMOL/L (98-107); CREATININE FOR GFR 0.61 MG/DL (0.55-1.30); GLOMERULAR FILTRATION RATE > 60.0 (>32); GLUCOSE, FASTING 83 MG/DL (74-106); POTASSIUM SERUM 3.8 MMOL/L (3.5-5.1); SODIUM LEVEL 143 MMOL/L (136-145); TOTAL PROTEIN 5.1 G/DL (5.7-8.2)
[2024-03-21 09:54] LABS: HEMATOCRIT 28.3 % (36.0-47.0); HEMOGLOBIN 8.5 g/dl (12.0-15.5)
[2024-03-21 12:00] VITALS: BP 146/60; TEMP 98.2; O2SAT 97
[2024-03-21] MEDS: FERRIC CARBOXYMALTOSE INJ 750 MG, VIAL MATE ADAPTER 1 EACH in NS 100 ML IV ONE (12:51)
[2024-03-21 21:37] VITALS: BP 141/60; TEMP 98.1; O2SAT 98
[2024-03-21 23:52] VITALS: BP 147/48; TEMP 97.9; O2SAT 97
[2024-03-22 05:03] VITALS: BP 180/94; TEMP 98.8; O2SAT 98
[2024-03-22 05:06] VITALS: BP 172/78
[2024-03-22 08:00] VITALS: BP 165/69; TEMP 97.9; O2SAT 96
[2024-03-22 08:21] LABS: HEMATOCRIT 29.6 % (36.0-47.0); HEMOGLOBIN 8.9 g/dl (12.0-15.5)
[2024-03-22] MEDS ORDERED: SENOKOT S TAB PO SCH (09:00)
[2024-03-22] MEDS ORDERED: MAGNESIUM CITRATE 300ML BTL PO ONE (09:00)
[2024-03-22] MEDS ORDERED: SENOKOT S TAB PO PRN (09:00)
[2024-03-22 09:33] VITALS: BP 160/62
[2024-03-22] MEDS ORDERED: SENN-52 PO (11:08)
[2024-03-22] MEDS ORDERED: FERR5MLUD PO (11:08)
[2024-03-22] MEDS ORDERED: PANT40TA29 PO (11:08)
[2024-03-22] MEDS ORDERED: SUCR1ORA PO (11:08)
[2024-03-22] MEDS ORDERED: ASPI-163 PO (11:08)
[2024-03-22 12:00] VITALS: BP 159/63; TEMP 98.3; O2SAT 96
[2024-03-25] MEDS ORDERED: FERROUS SULFATE 300MG/5ML UDC LIQUID PO SCH (09:00)
== END 2024-03-22 14:20 | disposition home health service (06) | DRG 813 ==
LOC: M ED 11:58 → M ED INP 15:01 → M PCU 03-14 03:10 → M MS5PR 03-15 20:53
PROVIDERS: ADMIT Internal Medicine; ATTEND Student in an Organized Health Care Education/Training Program
PROC: 30233N1 Transfusion of Nonautologous Red Blood Cells into Peripheral Vein, Percutaneous Approach (ICD-10-PCS; 2024-03-13)
PROC: 0DBK8ZX Excision of Ascending Colon, Via Natural or Artificial Opening Endoscopic, Diagnostic (ICD-10-PCS; 2024-03-17)
PROC: 0DJ08ZZ Inspection of Upper Intestinal Tract, Via Natural or Artificial Opening Endoscopic (ICD-10-PCS; principal; 2024-03-17 09:00)
DX: D68.32 Hemorrhagic disorder due to extrinsic circulating anticoagulants (principal); K92.1 Melena; D62 Acute posthemorrhagic anemia; I10 Essential (primary) hypertension; F39 Unspecified mood [affective] disorder; I25.10 Atherosclerotic heart disease of native coronary artery without angina pectoris; E03.9 Hypothyroidism, unspecified; K52.831 Collagenous colitis; Z79.02 Long term (current) use of antithrombotics/antiplatelets; E61.1 Iron deficiency; D12.2 Benign neoplasm of ascending colon; K64.9 Unspecified hemorrhoids; G62.9 Polyneuropathy, unspecified; Z86.73 Personal history of transient ischemic attack (TIA), and cerebral infarction without residual deficits; Z88.0 Allergy status to penicillin; Z79.899 Other long term (current) drug therapy; Z79.82 Long term (current) use of aspirin; Z66 Do not resuscitate

== ENCOUNTER → 2024-03-24 | Outpatient (CLI) | payer MEDICARE, OTHER ==
[~2024-03-24] MED LIST changes: +BUSP5TA PO; +FERR5MLUD PO; +PANT40TA29 PO; +SENN-52 PO; +SIMV-254 PO; +SUCR1ORA PO
[2024-03-24 09:08] LABS: HEMOGLOBIN 9.4 g/dl (12.0-15.5)
== END ==
LOC: M LAB 08:32
PROVIDERS: ATTEND Student in an Organized Health Care Education/Training Program
DX: D64.9 Anemia, unspecified (principal)

== ENCOUNTER → 2024-04-05 | Outpatient (REF) | payer MEDICARE, OTHER | LOC: M LAB REF 13:11 | PROVIDERS: ATTEND Physician Assistant Medical | DX: N39.0 Urinary tract infection, site not specified (principal) ==

== ENCOUNTER 2024-04-17 11:13 | Observation (INO) | payer MEDICARE, OTHER ==
[~2024-04-17] VITALS: Ht 157.5 cm; Wt 44.6 kg
[~2024-04-17 11:13] MED LIST changes: +SUCR1TAB56 PO
[2024-04-17 12:29] LABS: HEMATOCRIT 43.2 % (36.0-47.0); HEMOGLOBIN 13.8 g/dl (12.0-15.5); LYMPH % 18.6 % (24.0-44.0); MEAN CORPUSCULAR HEMOGLOBIN 29.6 pg (27.0-33.0); MEAN CORPUSCULAR HGB CONC 31.9 g/dl (32.0-36.5); MEAN CORPUSCULAR VOLUME 92.5 fl (80.0-96.0); NEUTROPHILS % 69.2 % (36.0-66.0); PLATELET COUNT, AUTOMATED 186 10^3/uL (150-450); RED BLOOD COUNT 4.67 10^6/uL (4.00-5.40); WHITE BLOOD COUNT 7.4 10^3/uL (4.0-10.0)
[2024-04-17 12:30] LABS: BASO # 0.1 10^3/uL (0.0-0.2); BASO % 0.9 % (0.0-1.0); EOS # 0.2 10^3/uL (0.0-0.5); EOS % 3.2 % (0.0-3.0); LYMPH # 1.4 10^3/uL (1.5-5.0); MONO # 0.6 10^3/uL (0.0-0.8); MONO % 7.8 % (2.0-8.0); NEUTROPHILS # 5.1 10^3/uL (1.5-8.5)
[2024-04-17] MEDS: hydrALAZINE 20MG/ML 1ML VIAL IV STA ×2 (12:37→13:52)
[2024-04-17 13:00] LABS: CK-MB VALUE MASS 2.5 NG/ML (<3.6)
[2024-04-17 13:02] LABS: CPK CREATINE PHOSPHOKINASE 56 U/L (34-145); MB/CK RELATIVE INDEX 4.46 (< OR =4)
[2024-04-17 13:11] LABS: ALBUMIN 3.7 G/DL (3.2-5.2); ALKALINE PHOSPHATASE 119 U/L (35-104); ALT/SGPT 21 U/L (7.0-40); AST/SGOT 28 U/L (<34); BILIRUBIN,DIRECT 0.2 MG/DL (<0.4); BILIRUBIN,TOTAL 0.5 MG/DL (0.3-1.2); BLOOD UREA NITROGEN 15 MG/DL (9-23); CALCIUM LEVEL 9.6 MG/DL (8.3-10.6); CARBON DIOXIDE LEVEL 28 MMOL/L (20-31); CHLORIDE LEVEL 107 MMOL/L (98-107); GLOMERULAR FILTRATION RATE > 60.0 (>32); GLUCOSE, FASTING 77 MG/DL (74-106); POTASSIUM SERUM 4.3 MMOL/L (3.5-5.1); SODIUM LEVEL 143 MMOL/L (136-145); TOTAL PROTEIN 6.6 G/DL (5.7-8.2)
[2024-04-17] MEDS ORDERED: IRON65TA2 PO (13:21)
[2024-04-17] MEDS ORDERED: PANT40TA29 PO (13:23)
[2024-04-17] MEDS ORDERED: HOME MED LIST COMPLETE! XX SCH (13:25)
[2024-04-17] MEDS: METOPROLOL SUCC (TopROL XL) 100MG *XL* TAB PO STA (15:48)
[2024-04-17] MEDS: ramipriL 5 MG CAP PO SCH (15:49)
[2024-04-17] MEDS ORDERED: IPRATROPIUM 0.5MG/ALBUTEROL 2.5MG INH SOL UD 3ML (DUONEB) NEB PRN (16:15)
[2024-04-17] MEDS ORDERED: hydrALAZINE 20MG/ML 1ML VIAL IV PRN (17:05)
[2024-04-17] MEDS: **hydrALAZINE HCL** 25 MG TAB PO SCH (17:48)
[2024-04-17 18:36] VITALS: BP 152/66; TEMP 97.7; O2SAT 91
[2024-04-17 20:00] VITALS: BP 146/67; TEMP 97.1; O2SAT 90
[2024-04-17] MEDS: SIMVASTATIN 40 MG TAB PO SCH (20:21)
[2024-04-17] MEDS: ISOSORBIDE DIN. (ISORDIL) 20 MG TAB PO SCH (20:22)
[2024-04-17 21:01] VITALS: O2SAT 87
[2024-04-17 21:02] VITALS: O2SAT 92
[2024-04-17] MEDS: IPRATROPIUM 0.5MG/ALBUTEROL 2.5MG INH SOL UD 3ML (DUONEB) NEB SCH (21:06)
[2024-04-17] MEDS: ramipriL 5 MG CAP PO STA (22:12)
[2024-04-18] VITALS: BP 134/78; TEMP 98.2; O2SAT 91
[2024-04-18 04:00] VITALS: BP 166/70; TEMP 97.4; O2SAT 94
[2024-04-18 05:23] LABS: BASO # 0.1 10^3/uL (0.0-0.2); BASO % 1.2 % (0.0-1.0); EOS # 0.2 10^3/uL (0.0-0.5); EOS % 2.4 % (0.0-3.0); HEMOGLOBIN 13.9 g/dl (12.0-15.5); LYMPH # 1.8 10^3/uL (1.5-5.0); LYMPH % 25.4 % (24.0-44.0); MEAN CORPUSCULAR HEMOGLOBIN 28.8 pg (27.0-33.0); MEAN CORPUSCULAR HGB CONC 31.6 g/dl (32.0-36.5); MEAN CORPUSCULAR VOLUME 91.1 fl (80.0-96.0); MONO # 0.8 10^3/uL (0.0-0.8); MONO % 11.8 % (2.0-8.0); NEUTROPHILS # 4.1 10^3/uL (1.5-8.5); NEUTROPHILS % 58.9 % (36.0-66.0); PLATELET COUNT, AUTOMATED 202 10^3/uL (150-450); RED BLOOD COUNT 4.83 10^6/uL (4.00-5.40); WHITE BLOOD COUNT 6.9 10^3/uL (4.0-10.0)
[2024-04-18 05:51] LABS: CALCIUM LEVEL 9.8 MG/DL (8.3-10.6); CHOLESTEROL RISK RATIO 3.19 (<5); CREATININE FOR GFR 0.96 MG/DL (0.55-1.30); GLOMERULAR FILTRATION RATE 59.2 (>32); HDL CHOLESTEROL 44.1 MG/DL (>40); HEMOGLOBIN A1c 4.5 % (4.0-6.0); LDL CHOLESTEROL 78.3 MG/DL (<100); NON-HDL-C 96.9 MG/DL; POTASSIUM SERUM 4.2 MMOL/L (3.5-5.1)
[2024-04-18] MEDS: LEVOTHYROXINE 88MCG TABLET (0.088 MG) PO SCH (06:16)
[2024-04-18 07:56] VITALS: BP 132/69; TEMP 97.2; O2SAT 91
[2024-04-18] MEDS ORDERED: ROSU20TA86 PO (08:47)
[2024-04-18] MEDS ORDERED: ALTA1CAP4 PO ×2 (08:47→14:06)
[2024-04-18] MEDS ORDERED: AMLO1TAB24 PO (08:47)
[2024-04-18] MEDS: METOPROLOL SUCC (TopROL XL) 100MG *XL* TAB PO SCH (08:54)
[2024-04-18] MEDS: PANTOPRAZOLE 40MG TAB (PROTONIX) PO SCH (08:55)
[2024-04-18] MEDS: BUDESONIDE EC 3MG CAP (ENTOCORT EC) PO SCH (08:55)
[2024-04-18] MEDS: SERTRALINE 100 MG TAB PO SCH (08:55)
[2024-04-18] MEDS: ramipriL 5 MG CAP PO SCH (08:56)
[2024-04-18 12:02] VITALS: BP 116/56; O2SAT 92
[2024-04-18 12:51] VITALS: TEMP 96.9
[2024-04-18] MEDS ORDERED: HYDR50TA46 PO (13:45)
[2024-04-18] MEDS ORDERED: SIMV40TA20 PO (14:01)
[2024-04-18 15:15] VITALS: BP 149/69
[2024-04-19] MEDS ORDERED: FERROUS SULFATE 325MG TAB PO SCH (09:00)
== END 2024-04-18 15:37 | disposition home or self-care (01) ==
LOC: M ED 11:13 → EDBD 11:13 → M ED INP 14:25 → INTOOBSV 14:25 → M PCU 18:37
PROVIDERS: ADMIT Internal Medicine; ATTEND Internal Medicine
DX: I16.0 Hypertensive urgency (principal); Z86.73 Personal history of transient ischemic attack (TIA), and cerebral infarction without residual deficits; I25.10 Atherosclerotic heart disease of native coronary artery without angina pectoris; E78.5 Hyperlipidemia, unspecified; J44.9 Chronic obstructive pulmonary disease, unspecified; E03.9 Hypothyroidism, unspecified; D12.0 Benign neoplasm of cecum; K52.831 Collagenous colitis; F39 Unspecified mood [affective] disorder; D50.9 Iron deficiency anemia, unspecified; G62.9 Polyneuropathy, unspecified; Z85.43 Personal history of malignant neoplasm of ovary; G47.33 Obstructive sleep apnea (adult) (pediatric); Z88.0 Allergy status to penicillin; Z79.899 Other long term (current) drug therapy
CPT/HCPCS: 36415; 51701; 70450; 70551; 71045; 72125; 80048; 80061; 80076; 81001; 82550; 82553; 83036; 83735; 84484; 85025; 93005; 93041; 93306; 94640; 94760; 96374; 96376; 97116; 97161; 97165; 97535; 99285; G0378; J0360

== ENCOUNTER 2024-05-01 06:38 | Day surgery (SDC) | payer MEDICARE, OTHER ==
[~2024-05-01] VITALS: Ht 157.5 cm; Wt 45.4 kg
[~2024-05-01 06:38] MED LIST changes: +ALTA1CAP4 PO; +AMLO1TAB24 PO; +HYDR50TA46 PO; +IRON65TA2 PO; +NS 250 ML IV ONE; +ROSU20TA86 PO; +SIMV40TA20 PO
[2024-05-01] MEDS ORDERED: propofoL 200 MG/20 ML VIAL As Ordered ONE (07:08)
[2024-05-01] MEDS ORDERED: ePHEDrine SULFATE 25 MG/5 ML(5MG/ML) SYRINGE As Ordered ONE (07:47)
[2024-05-01] MEDS ORDERED: GLYCOPYRROLATE INJ 0.2 MG/ML 2 ML VIAL As Ordered ONE (07:47)
[2024-05-01] MEDS ORDERED: PHENYLephrine 500MCG 5ML (100MCG/ML) SYRINGE As Ordered ONE (07:51)
[2024-05-01 08:28] VITALS: TEMP 97.8
[2024-05-01 08:48] VITALS: BP 115/56; O2SAT 99
== END 2024-05-01 09:06 | disposition home or self-care (01) ==
LOC: M OPP 06:38
PROVIDERS: ATTEND Internal Medicine Gastroenterology
DX: D12.5 Benign neoplasm of sigmoid colon (principal); K57.30 Diverticulosis of large intestine without perforation or abscess without bleeding; K64.8 Other hemorrhoids; I25.10 Atherosclerotic heart disease of native coronary artery without angina pectoris; I25.2 Old myocardial infarction; I10 Essential (primary) hypertension; E03.9 Hypothyroidism, unspecified; E78.00 Pure hypercholesterolemia, unspecified; Z79.890 Hormone replacement therapy; Z79.899 Other long term (current) drug therapy; Z95.5 Presence of coronary angioplasty implant and graft; Z90.710 Acquired absence of both cervix and uterus; Z90.49 Acquired absence of other specified parts of digestive tract; G62.9 Polyneuropathy, unspecified; Z86.73 Personal history of transient ischemic attack (TIA), and cerebral infarction without residual deficits; G47.30 Sleep apnea, unspecified; Z92.21 Personal history of antineoplastic chemotherapy; Z85.43 Personal history of malignant neoplasm of ovary; Z88.1 Allergy status to other antibiotic agents
CPT/HCPCS: 45385; 88305; J1596

== ENCOUNTER → 2024-05-17 | Outpatient (REF) | payer MEDICARE, OTHER ==
[~2024-05-17] MED LIST changes: -NS 250 ML IV ONE
[2024-05-17 14:03] LABS: BASO # 0.1 10^3/uL (0.0-0.2); BASO % 0.8 % (0.0-1.0); EOS # 0.3 10^3/uL (0.0-0.5); EOS % 4.6 % (0.0-3.0); HEMATOCRIT 43.3 % (36.0-47.0); HEMOGLOBIN 13.9 g/dl (12.0-15.5); LYMPH # 1.3 10^3/uL (1.5-5.0); LYMPH % 17.4 % (24.0-44.0); MEAN CORPUSCULAR HEMOGLOBIN 30.2 pg (27.0-33.0); MEAN CORPUSCULAR HGB CONC 32.1 g/dl (32.0-36.5); MEAN CORPUSCULAR VOLUME 94.1 fl (80.0-96.0); MONO # 0.6 10^3/uL (0.0-0.8); MONO % 8.2 % (2.0-8.0); NEUTROPHILS # 4.9 10^3/uL (1.5-8.5); NEUTROPHILS % 68.9 % (36.0-66.0); PLATELET COUNT, AUTOMATED 191 10^3/uL (150-450); WHITE BLOOD COUNT 7.2 10^3/uL (4.0-10.0)
== END ==
LOC: M SFHCPLAZ 09:27
PROVIDERS: ATTEND Internal Medicine Hematology
DX: D50.9 Iron deficiency anemia, unspecified (principal)

== ENCOUNTER → 2024-06-23 | Outpatient (REF) | payer MEDICARE, OTHER ==
[2024-06-23 13:39] LABS: PERCENT SATURATION 14.4 % (13.2-45.0)
[2024-06-23 13:42] LABS: FERRITIN 84.8 NG/ML (7.3-270.7)
== END ==
LOC: M LAB REF 12:23
PROVIDERS: ATTEND Internal Medicine
DX: D50.9 Iron deficiency anemia, unspecified (principal)

== ENCOUNTER → 2025-02-28 | Outpatient (CLI) | payer MEDICARE, OTHER ==
[~2025-02-28] MED LIST changes: +AMLO1TAB25 PO; +ASPI81CH33 PO; +ASPI81TA26 PO; +CARV12.5 PO; +FERR300L12 PO; -FERR5MLUD PO; -LEVO88CA PO; +LEVO88CA2 PO; +NICO1DIS10 TD
[2025-02-28 10:20] LABS: BASO # 0.1 10^3/uL (0.0-0.2); BASO % 1.3 % (0.0-1.0); EOS # 0.4 10^3/uL (0.0-0.5); EOS % 7.5 % (0.0-3.0); LYMPH # 1.8 10^3/uL (1.5-5.0); LYMPH % 32.9 % (24.0-44.0); MONO # 0.6 10^3/uL (0.0-0.8); MONO % 10.2 % (2.0-8.0); NEUTROPHILS # 2.7 10^3/uL (1.5-8.5); NEUTROPHILS % 47.6 % (36.0-66.0); PLATELET COUNT, AUTOMATED 210 10^3/uL (150-450)
[2025-02-28 10:54] LABS: CALCIUM LEVEL 8.8 MG/DL (8.3-10.6); CARBON DIOXIDE LEVEL 30.0 MMOL/L (20-31); CHLORIDE LEVEL 107.0 MMOL/L (98-107); CHOLESTEROL LEVEL 135.0 MG/DL (<200); CHOLESTEROL RISK RATIO 2.45 (<5); CREATININE FOR GFR 0.9 MG/DL (0.55-1.30); DIGOXIN LEVEL 0.2 NG/ML (0.8-2.0); GLOMERULAR FILTRATION RATE 63.4 (>32); LDL CHOLESTEROL 63.5 MG/DL (<100); MAGNESIUM LEVEL 1.9 MG/DL (1.8-2.4); NON-HDL-C 79.9 MG/DL; POTASSIUM SERUM 4.3 MMOL/L (3.5-5.1); SODIUM LEVEL 143.0 MMOL/L (136-145); TRIGLYCERIDES LEVEL 82.0 MG/DL (<150)
== END ==
LOC: M LAB 08:50
PROVIDERS: ATTEND Nurse Practitioner Family
DX: I48.0 Paroxysmal atrial fibrillation (principal); R94.31 Abnormal electrocardiogram [ECG] [EKG]; Z79.899 Other long term (current) drug therapy

== ENCOUNTER 2025-03-03 11:44 | Emergency (ER) | payer MEDICARE, OTHER ==
[~2025-03-03] VITALS: Ht 157.5 cm; Wt 49.1 kg
[2025-03-03] MEDS ORDERED: ELIQ2.5T PO (12:04)
[2025-03-03] MEDS ORDERED: DIGO0.123 PO (12:04)
[2025-03-03 14:15] VITALS: BP 177/82; TEMP 98.1; O2SAT 98
[2025-03-03] MEDS: TETANUS/DIPHTH/ACEL. PERTUSSIS 0.5 ML SYR IM ONE (14:16)
== END 2025-03-03 14:34 | disposition home or self-care (01) ==
LOC: M ED 11:44
DX: S00.03XA Contusion of scalp, initial encounter (principal); S61.512A Laceration without foreign body of left wrist, initial encounter; W01.198A Fall on same level from slipping, tripping and stumbling with subsequent striking against other object, initial encounter; F32.A Depression, unspecified; I10 Essential (primary) hypertension; E03.9 Hypothyroidism, unspecified; J44.9 Chronic obstructive pulmonary disease, unspecified; I25.2 Old myocardial infarction; M51.34 Other intervertebral disc degeneration, thoracic region; M50.322 Other cervical disc degeneration at C5-C6 level; M25.78 Osteophyte, vertebrae; M48.02 Spinal stenosis, cervical region; Z79.01 Long term (current) use of anticoagulants; Z88.1 Allergy status to other antibiotic agents; Z86.79 Personal history of other diseases of the circulatory system; Y92.009 Unspecified place in unspecified non-institutional (private) residence as the place of occurrence of the external cause; Y93.89 Activity, other specified; Y99.9 Unspecified external cause status; Z79.899 Other long term (current) drug therapy; Z79.82 Long term (current) use of aspirin

== ENCOUNTER 2025-03-09 15:54 | Observation (INO) | payer MEDICARE, OTHER ==
[~2025-03-09] VITALS: Ht 157.5 cm; Wt 48.5 kg
[~2025-03-09 15:54] MED LIST changes: +DIGO0.123 PO; +ELIQ2.5T PO
[2025-03-09 16:54] LABS: BASO # 0.1 10^3/uL (0.0-0.2); BASO % 1.1 % (0.0-1.0); EOS # 0.4 10^3/uL (0.0-0.5); EOS % 4.9 % (0.0-3.0); LYMPH # 1.8 10^3/uL (1.5-5.0); LYMPH % 24.6 % (24.0-44.0); MONO # 0.6 10^3/uL (0.0-0.8); MONO % 8.8 % (2.0-8.0); NEUTROPHILS # 4.4 10^3/uL (1.5-8.5); NEUTROPHILS % 60.1 % (36.0-66.0); PLATELET COUNT, AUTOMATED 213 10^3/uL (150-450)
[2025-03-09 17:25] LABS: ALT/SGPT 13 U/L (7.0-40); AST/SGOT 25 U/L (<34); CALCIUM LEVEL 8.9 MG/DL (8.3-10.6); CARBON DIOXIDE LEVEL 26 MMOL/L (20-31); CHLORIDE LEVEL 110 MMOL/L (98-107); CREATININE FOR GFR 1.07 MG/DL (0.55-1.30); GLOMERULAR FILTRATION RATE 51.5 (>32); POTASSIUM SERUM 4.0 MMOL/L (3.5-5.1); SODIUM LEVEL 141 MMOL/L (136-145)
[2025-03-09 17:38] LABS: INR 0.95
[2025-03-09] MEDS: PANTOPRAZOLE 40MG VIAL IV ONE (20:17)
[2025-03-10 01:41] LABS: BASO # 0.1 10^3/uL (0.0-0.2); BASO % 1.2 % (0.0-1.0); EOS # 0.4 10^3/uL (0.0-0.5); EOS % 6.4 % (0.0-3.0); LYMPH # 2.2 10^3/uL (1.5-5.0); LYMPH % 31.3 % (24.0-44.0); MONO # 0.7 10^3/uL (0.0-0.8); MONO % 9.7 % (2.0-8.0); NEUTROPHILS # 3.5 10^3/uL (1.5-8.5); NEUTROPHILS % 51.0 % (36.0-66.0); PLATELET COUNT, AUTOMATED 209 10^3/uL (150-450)
[2025-03-10 02:00] VITALS: BP 192/88; TEMP 98.5; O2SAT 92
[2025-03-10 02:04] LABS: CALCIUM LEVEL 9.0 MG/DL (8.3-10.6); CARBON DIOXIDE LEVEL 27.0 MMOL/L (20-31); CHLORIDE LEVEL 106.0 MMOL/L (98-107); CREATININE FOR GFR 0.85 MG/DL (0.55-1.30); GLOMERULAR FILTRATION RATE 67.9 (>32); POTASSIUM SERUM 3.9 MMOL/L (3.5-5.1); SODIUM LEVEL 143.0 MMOL/L (136-145)
[2025-03-10] MEDS: GOLYTELY SOLN 4000 ML BTL PO ONE (02:30)
[2025-03-10 04:18] VITALS: O2SAT 92
[2025-03-10 07:44] VITALS: BP 180/80; TEMP 97.5; O2SAT 91
[2025-03-10] MEDS: PANTOPRAZOLE 40MG VIAL IV SCH (09:05)
[2025-03-10] MEDS ORDERED: HOME MED LIST COMPLETE! XX SCH (11:15)
[2025-03-10 11:38] LABS: PLATELET COUNT, AUTOMATED 212 10^3/uL (150-450)
[2025-03-10] MEDS: LEVOTHYROXINE 88 MCG TABLET (0.088 MG) PO SCH (11:38)
[2025-03-10] MEDS: amLODIPine 5 MG TAB PO SCH (11:38)
[2025-03-10 15:40] VITALS: BP 168/81; TEMP 98.6; O2SAT 93
[2025-03-10 20:50] VITALS: BP 163/76; TEMP 97.8; O2SAT 89
[2025-03-11] MEDS: LEVALBUTEROL 1.25 MG 0.5ML CONCENTRATE NEB NEB ONE (00:18)
[2025-03-11 04:09] VITALS: BP 151/70; TEMP 98.1; O2SAT 88
[2025-03-11 06:25] LABS: BASO # 0.1 10^3/uL (0.0-0.2); BASO % 1.3 % (0.0-1.0); EOS # 0.4 10^3/uL (0.0-0.5); EOS % 6.2 % (0.0-3.0); LYMPH # 2.0 10^3/uL (1.5-5.0); LYMPH % 31.5 % (24.0-44.0); MONO # 0.7 10^3/uL (0.0-0.8); MONO % 10.9 % (2.0-8.0); NEUTROPHILS # 3.1 10^3/uL (1.5-8.5); NEUTROPHILS % 49.6 % (36.0-66.0); PLATELET COUNT, AUTOMATED 197 10^3/uL (150-450)
[2025-03-11 06:49] LABS: CALCIUM LEVEL 8.7 MG/DL (8.3-10.6); CARBON DIOXIDE LEVEL 24.0 MMOL/L (20-31); CHLORIDE LEVEL 107.0 MMOL/L (98-107); CREATININE FOR GFR 0.89 MG/DL (0.55-1.30); GLOMERULAR FILTRATION RATE 64.3 (>32); POTASSIUM SERUM 3.9 MMOL/L (3.5-5.1); SODIUM LEVEL 140.0 MMOL/L (136-145)
[2025-03-11 07:37] VITALS: BP 136/65; TEMP 97.8; O2SAT 91
[2025-03-11] MEDS: POLYETHYLENE GLYCOL 238 GM BOTTLE PO ONE (15:20)
[2025-03-11 16:23] VITALS: BP 178/81; TEMP 97.8; O2SAT 94
[2025-03-11 20:27] VITALS: BP 140/65; TEMP 97.3; O2SAT 92
[2025-03-12 01:15] VITALS: BP 164/64; TEMP 97.3; O2SAT 93
[2025-03-12 04:59] VITALS: BP 173/69; TEMP 97.2; O2SAT 95
[2025-03-12 06:35] LABS: BASO # 0.1 10^3/uL (0.0-0.2); BASO % 1.1 % (0.0-1.0); EOS # 0.4 10^3/uL (0.0-0.5); EOS % 8.0 % (0.0-3.0); LYMPH # 1.6 10^3/uL (1.5-5.0); LYMPH % 36.6 % (24.0-44.0); MONO # 0.5 10^3/uL (0.0-0.8); MONO % 11.5 % (2.0-8.0); NEUTROPHILS # 1.8 10^3/uL (1.5-8.5); NEUTROPHILS % 42.1 % (36.0-66.0); PLATELET COUNT, AUTOMATED 197 10^3/uL (150-450)
[2025-03-12] MEDS: POLYETHYLENE GLYCOL 238 GM BOTTLE PO ONE (06:38)
[2025-03-12 07:08] LABS: CALCIUM LEVEL 8.5 MG/DL (8.3-10.6); CARBON DIOXIDE LEVEL 27.0 MMOL/L (20-31); CHLORIDE LEVEL 107.0 MMOL/L (98-107); CREATININE FOR GFR 0.91 MG/DL (0.55-1.30); GLOMERULAR FILTRATION RATE 62.6 (>32); POTASSIUM SERUM 4.1 MMOL/L (3.5-5.1); SODIUM LEVEL 141.0 MMOL/L (136-145)
[2025-03-12] MEDS: MAGNESIUM CITRATE 300 ML BTL PO ONE (10:00)
[2025-03-12 14:00] VITALS: BP 160/74; TEMP 97.7; O2SAT 95
[2025-03-12] MEDS ORDERED: LIDOCAINE 2% 100 MG/5 ML SDV (FOR ANES.) As Ordered ONE (15:01)
[2025-03-12] MEDS ORDERED: GLYCOPYRROLATE INJ 0.2 MG/ML 2 ML VIAL As Ordered ONE (15:29)
[2025-03-12 21:43] VITALS: BP 182/72; TEMP 97.7; O2SAT 96
[2025-03-12 21:45] VITALS: BP 182/72
[2025-03-13 06:10] VITALS: BP 152/64; TEMP 97.9; O2SAT 95
[2025-03-13 08:06] LABS: BASO # 0.1 10^3/uL (0.0-0.2); BASO % 0.5 % (0.0-1.0); EOS # 0.4 10^3/uL (0.0-0.5); EOS % 3.5 % (0.0-3.0); LYMPH # 1.4 10^3/uL (1.5-5.0); LYMPH % 13.2 % (24.0-44.0); MONO # 0.8 10^3/uL (0.0-0.8); MONO % 7.5 % (2.0-8.0); NEUTROPHILS # 7.8 10^3/uL (1.5-8.5); NEUTROPHILS % 75.0 % (36.0-66.0); PLATELET COUNT, AUTOMATED 202 10^3/uL (150-450)
[2025-03-13 08:32] LABS: CALCIUM LEVEL 8.7 MG/DL (8.3-10.6); CARBON DIOXIDE LEVEL 24.0 MMOL/L (20-31); CHLORIDE LEVEL 106.0 MMOL/L (98-107); CREATININE FOR GFR 0.91 MG/DL (0.55-1.30); GLOMERULAR FILTRATION RATE 62.6 (>32); POTASSIUM SERUM 3.8 MMOL/L (3.5-5.1); SODIUM LEVEL 137.0 MMOL/L (136-145)
== END 2025-03-13 11:24 | disposition home or self-care (01) ==
LOC: M ED 15:54 → M ED INP 15:55 → INTOOBSV 03-10 → UNDOADMOB 03-10 → M ED INP 03-10 → M PCU 03-10 01:42 → M MS5PR 03-12 01:13 → M PCU 03-12 01:13 → M MS5PR 03-12 01:13 → UNDODISOB 03-13 11:24
PROVIDERS: ADMIT Student in an Organized Health Care Education/Training Program; ATTEND General Practice
DX: K92.2 Gastrointestinal hemorrhage, unspecified (principal); K44.9 Diaphragmatic hernia without obstruction or gangrene; K57.30 Diverticulosis of large intestine without perforation or abscess without bleeding; K64.8 Other hemorrhoids; Z86.0100 Personal history of colon polyps, unspecified; I48.91 Unspecified atrial fibrillation; Z86.73 Personal history of transient ischemic attack (TIA), and cerebral infarction without residual deficits; I10 Essential (primary) hypertension; J44.9 Chronic obstructive pulmonary disease, unspecified; G47.33 Obstructive sleep apnea (adult) (pediatric); E03.9 Hypothyroidism, unspecified; G62.9 Polyneuropathy, unspecified; K52.831 Collagenous colitis; F39 Unspecified mood [affective] disorder; Z79.01 Long term (current) use of anticoagulants; D62 Acute posthemorrhagic anemia; Z88.0 Allergy status to penicillin; Z79.899 Other long term (current) drug therapy
CPT/HCPCS: 36415; 43239; 45380; 45385; 80048; 80076; 83690; 85025; 85027; 85610; 85730; 86850; 86870; 86900; 86901; 86920; 88305; 93005; 94640; 96374; 96376; 97116; 97161; 97530; 99285; G0378; J1596; J2470; J3010